=== PATIENT | female | born 1945 | race Caucasian/White ===

== ENCOUNTER 2023-11-15 15:48 | Inpatient (IN) ==
[2023-11-15] MEDS ORDERED: NS 0.9% 1000 ml BAG 1,000 ML IV ONE (16:44)
[2023-11-15] MEDS ORDERED: Magnesium Sulfate 2 gm BAG 2 GM/50 ML BAG IVPB ONE (16:44)
[2023-11-15] MEDS ORDERED: Metoprolol Tartrate 5 mg VIAL 5 ml VIAL (1 mg/ml) IV ONE (16:46)
[2023-11-15 18:04] LABS: ABS Lymphocytes 0.1 10^3/uL (1.0-4.8); ABS Monocytes 0.1 10^3/uL (0.0-0.9); ABS Nucleated RBC 0.01 10^3/ul; Eosinophil % 1.1 %; Hemoglobin 10.2 g/dL (11.5-14.3); Lymphocyte % 10.3 %; Mean Corpuscular Hemoglobin 31.3 pg (27-33); Mean Corpuscular Hgb Conc 33.9 g/dL (31-36); Mean Corpuscular Volume 92.3 fL (80-97); Mean Platelet Volume 8.1 fL (7.5-11.2); Nucleated Red Blood Cells % 0.7 %/100WBC (0.0-0.8); Platelet Count 64 10^3/uL (150-450); Red Blood Count 3.25 10^6/uL (3.63-4.92); Red Cell Distribution Width 14.1 % (12-17); White Blood Count 0.8 10^3/uL (3.8-11.8)
[2023-11-15 18:08] LABS: ABS Neutrophils 0.6 10^3/uL (1.5-7.6)
[2023-11-15 18:20] LABS: Albumin 3.3 g/dL (3.2-5.2); Albumin/Globulin Ratio 1.5 (1-3); Creatinine, Serum 0.45 mg/dL (0.51-0.95); Globulin 2.2 g/dL (2-4); Magnesium 2.3 mg/dL (1.9-2.7); Potassium 3.8 mmol/L (3.5-5.0); Total Bilirubin 0.4 mg/dL (0.2-1.0); Total Protein 5.5 g/dL (6.4-8.9); eGFR CKD-EPI 97.8 (>60)
[2023-11-15] MEDS: KCL 20 MEQ/100 ML IVPREMIX 20 MEQ/100 ML BAG IV SCH (18:28)
[2023-11-15] MEDS ORDERED: Remdesivir 100 mg Vial 200 MG in NS 0.9% 250 ml 210 ML IV ONE (18:50)
[2023-11-15] MEDS ORDERED: D5LR 1000 ml BAG 1,000 ML IV SCH (19:00)
[2023-11-15] MEDS ORDERED: Remdesivir 100 mg Vial 100 MG in NS 0.9% 250 ml 230 ML IV SCH (19:00)
[2023-11-15] MEDS: Sucralfate 1 gm SUSP 1 GM/10 ML UDC PO SCH (21:19)
[2023-11-15] MEDS ORDERED: Vancomycin 1,000 MG in NS 0.9% 250 ml 250 ML IVPB ONE (21:57)
[2023-11-15] MEDS ORDERED: Acetaminophen IV 1 GM/100ML 1,000 MG/100 ML BAG IV ONE (21:59)
[2023-11-15] MEDS ORDERED: Vancomycin per Pharmacy 1 EA NOTE FOLLOW UP SCH (22:00)
[2023-11-15] MEDS: Cefepime 2 GM in Dextrose 2 GM/50 ML BAG IV SCH (22:57)
[2023-11-15] MEDS ORDERED: Metoprolol Tartrate 5 mg VIAL 5 ml VIAL (1 mg/ml) IV PRN (23:58)
[2023-11-16] MEDS: KCL 20 MEQ/100 ML IVPREMIX 20 MEQ/100 ML BAG IV SCH ×3 (00:27→15:50)
[2023-11-16 01:50] LABS: Urine Appearance Clear; Urine Bilirubin Negative (Negative); Urine Blood Negative (Negative); Urine Color Yellow; Urine Glucose Negative (Negative); Urine Ketones 1+ (Negative); Urine Nitrite Negative (Negative); Urine Protein Negative (Negative); Urine Specific Gravity 1.023 (1.002-1.030); Urine Urobilinogen Negative (Negative)
[2023-11-16] MEDS: Vancomycin 750 MG in NS 0.9% 250 ML IVPB SCH ×3 (06:11→22:18)
[2023-11-16] MEDS ORDERED: Acetaminophen IV 1 GM/100ML 1,000 MG/100 ML BAG IV PRN (06:19)
[2023-11-16] MEDS: Sucralfate 1 gm SUSP 1 GM/10 ML UDC PO SCH ×4 (08:08→21:37)
[2023-11-16 08:34] LABS: Calcium 7.7 mg/dL (8.6-10.3); Creatinine, Serum 0.43 mg/dL (0.51-0.95); Magnesium 1.7 mg/dL (1.9-2.7); Potassium 3.3 mmol/L (3.5-5.0); eGFR CKD-EPI 98.9 (>60)
[2023-11-16 08:45] LABS: ABS Lymphocytes 0.1 10^3/uL (1.0-4.8); ABS Monocytes 0.1 10^3/uL (0.0-0.9); Eosinophil % 2.1 %; Hematocrit 31.6 % (35-45); Hemoglobin 10.6 g/dL (11.5-14.3); Lymphocyte % 11.3 %; Mean Corpuscular Hemoglobin 31.2 pg (27-33); Mean Corpuscular Hgb Conc 33.6 g/dL (31-36); Mean Corpuscular Volume 92.9 fL (80-97); Mean Platelet Volume 8.4 fL (7.5-11.2); Nucleated Red Blood Cells % 0.6 %/100WBC (0.0-0.8); Platelet Count 59 10^3/uL (150-450); Red Cell Distribution Width 13.8 % (12-17); White Blood Count 0.7 10^3/uL (3.8-11.8)
[2023-11-16 08:46] LABS: TSH Ultra Thyroid Stim Horm 1.02 mcIU/mL (0.34-5.60)
[2023-11-16] MEDS: Cefepime 2 GM in Dextrose 2 GM/50 ML BAG IV SCH ×2 (09:49→21:37)
[2023-11-16] MEDS ORDERED: Magnesium Sulfate 2 gm BAG 2 GM/50 ML BAG IVPB ONE (12:43)
[2023-11-16] MEDS: Lactated Ringers 1000 ml BAG 1,000 ML IV SCH ×2 (13:57→21:37)
[2023-11-16] MEDS ORDERED: Lactated Ringers 1000 ml BAG 1,000 ML IV SCH (14:00)
[2023-11-16] MEDS ORDERED: Magnesium Sulfate IV 1GM/100ML 1 GM/100 ML BAG IV ONE (14:43)
[2023-11-16] MEDS: fentaNYL PATCH 12 MCG/HR 1 PATCH TRANSDERM SCH (15:06)
[2023-11-16 15:35] LABS: ABS Neutrophils 0.6 10^3/uL (1.5-7.6)
[2023-11-16 16:20] LABS: Digoxin 0.5 ng/ml (0.8-2.0)
[2023-11-16] MEDS: Metoprolol Tartrate 5 mg VIAL 5 ml VIAL (1 mg/ml) IV PRN (18:30)
[2023-11-16] MEDS: fentaNYL Patch Check Q Shift NOTE FOLLOW UP SCH (19:17)
[2023-11-17] MEDS: Lactated Ringers 1000 ml BAG 1,000 ML IV SCH ×2 (04:14→17:46)
[2023-11-17] MEDS: Metoprolol Tartrate 5 mg VIAL 5 ml VIAL (1 mg/ml) IV PRN (04:28)
[2023-11-17] MEDS ORDERED: Vancomycin Trough Check NOTE FOLLOW UP ONE (06:00)
[2023-11-17] MEDS: Vancomycin 750 MG in NS 0.9% 250 ML IVPB SCH ×2 (06:49→14:47)
[2023-11-17] MEDS: fentaNYL Patch Check Q Shift NOTE FOLLOW UP SCH ×2 (06:50→19:00)
[2023-11-17 07:53] LABS: Hematocrit 29.3 % (35-45); Hemoglobin 10.3 g/dL (11.5-14.3); Mean Corpuscular Hemoglobin 31.7 pg (27-33); Mean Corpuscular Hgb Conc 35.1 g/dL (31-36); Mean Corpuscular Volume 90.5 fL (80-97); Platelet Count 57 10^3/uL (150-450); Red Blood Count 3.23 10^6/uL (3.63-4.92); Red Cell Distribution Width 13.5 % (12-17); White Blood Count 1.7 10^3/uL (3.8-11.8)
[2023-11-17 08:03] LABS: Calcium 7.6 mg/dL (8.6-10.3); Creatinine, Serum 0.42 mg/dL (0.51-0.95); Magnesium 1.7 mg/dL (1.9-2.7); Potassium 3.5 mmol/L (3.5-5.0); eGFR CKD-EPI 99.4 (>60)
[2023-11-17 08:10] LABS: Vancomycin Trough 12.5 mcg/mL
[2023-11-17] MEDS ORDERED: Magnesium Sulfate 2 gm BAG 2 GM/50 ML BAG IVPB ONE (08:10)
[2023-11-17] MEDS: Sucralfate 1 gm SUSP 1 GM/10 ML UDC PO SCH ×4 (08:34→20:16)
[2023-11-17 09:02] LABS: ABS Lymphocytes 0.1 10^3/uL (1.0-4.8); ABS Monocytes 0.1 10^3/uL (0.0-0.9); ABS Neutrophils 1.5 10^3/uL (1.5-7.6); ABS Nucleated RBC 0.01 10^3/ul; Eosinophil % 1.1 %; Lymphocyte % 6.5 %; Nucleated Red Blood Cells % 0.5 %/100WBC (0.0-0.8)
[2023-11-17] MEDS: Cefepime 2 GM in Dextrose 2 GM/50 ML BAG IV SCH ×2 (10:05→23:34)
[2023-11-17] MEDS ORDERED: Magnesium Sulfate IV 1GM/100ML 1 GM/100 ML BAG IV ONE (10:10)
[2023-11-18] MEDS: Vancomycin 750 MG in NS 0.9% 250 ML IVPB SCH ×4 (01:28→23:59)
[2023-11-18] MEDS: Lactated Ringers 1000 ml BAG 1,000 ML IV SCH (01:28)
[2023-11-18] MEDS: Metoprolol Tartrate 5 mg VIAL 5 ml VIAL (1 mg/ml) IV PRN (06:51)
[2023-11-18] MEDS: fentaNYL Patch Check Q Shift NOTE FOLLOW UP SCH ×2 (07:05→19:06)
[2023-11-18 07:57] LABS: Hematocrit 29.8 % (35-45); Hemoglobin 10.3 g/dL (11.5-14.3); Mean Corpuscular Hemoglobin 31.5 pg (27-33); Mean Corpuscular Hgb Conc 34.7 g/dL (31-36); Mean Corpuscular Volume 90.8 fL (80-97); Mean Platelet Volume 8.4 fL (7.5-11.2); Platelet Count 59 10^3/uL (150-450); Red Blood Count 3.28 10^6/uL (3.63-4.92); Red Cell Distribution Width 13.8 % (12-17); White Blood Count 2.8 10^3/uL (3.8-11.8)
[2023-11-18 08:12] LABS: Calcium 7.6 mg/dL (8.6-10.3); Creatinine, Serum 0.45 mg/dL (0.51-0.95); Magnesium 1.6 mg/dL (1.9-2.7); Potassium 3.1 mmol/L (3.5-5.0); eGFR CKD-EPI 97.8 (>60)
[2023-11-18] MEDS ORDERED: Magnesium Sulfate 2 gm BAG 2 GM/50 ML BAG IVPB ONE (08:35)
[2023-11-18] MEDS ORDERED: Potassium Chlor 20 meq TAB.ER PO ONE ×2 (08:35→11:13)
[2023-11-18 10:35] LABS: ABS Lymphocytes 0.1 10^3/uL (1.0-4.8); ABS Monocytes 0.3 10^3/uL (0.0-0.9); ABS Neutrophils 2.3 10^3/uL (1.5-7.6); Dohle Bodies Present; Eosinophil % 1.2 %; Lymphocyte % 4.9 %; Toxic Granulation 1+
[2023-11-18] MEDS: Cefepime 2 GM in Dextrose 2 GM/50 ML BAG IV SCH (11:19)
[2023-11-18] MEDS: Sucralfate 1 gm SUSP 1 GM/10 ML UDC PO SCH ×4 (11:24→21:02)
[2023-11-18] MEDS ORDERED: Lactated Ringers 1000 ml BAG 1,000 ML IV SCH (12:00)
[2023-11-19] MEDS: fentaNYL Patch Check Q Shift NOTE FOLLOW UP SCH ×2 (07:15→21:00)
[2023-11-19 07:20] LABS: Calcium 7.7 mg/dL (8.6-10.3); Creatinine, Serum 0.46 mg/dL (0.51-0.95); Magnesium 1.4 mg/dL (1.9-2.7); Potassium 3.4 mmol/L (3.5-5.0); eGFR CKD-EPI 97.3 (>60)
[2023-11-19 07:22] LABS: Hematocrit 29.2 % (35-45); Hemoglobin 10.2 g/dL (11.5-14.3); Mean Corpuscular Hemoglobin 31.8 pg (27-33); Mean Platelet Volume 8.2 fL (7.5-11.2); Platelet Count 64 10^3/uL (150-450); Red Blood Count 3.21 10^6/uL (3.63-4.92); Red Cell Distribution Width 13.5 % (12-17)
[2023-11-19] MEDS: Vancomycin 750 MG in NS 0.9% 250 ML IVPB SCH ×2 (08:09→14:09)
[2023-11-19] MEDS ORDERED: Potassium Chloride LIQUID 20 MEQ/15 ML LIQUID PO ONE (08:36)
[2023-11-19] MEDS: Sucralfate 1 gm SUSP 1 GM/10 ML UDC PO SCH ×4 (08:37→23:09)
[2023-11-19] MEDS ORDERED: Magnesium Sulfate 2 gm BAG 2 GM/50 ML BAG IVPB ONE (08:37)
[2023-11-19 08:58] LABS: ABS Lymphocytes 0.4 10^3/uL (1.0-4.8); ABS Monocytes 0.7 10^3/uL (0.0-0.9); ABS Neutrophils 2.8 10^3/uL (1.5-7.6); ABS Nucleated RBC 0.01 10^3/ul; Lymphocyte % 10.4 %; Nucleated Red Blood Cells % 0.2 %/100WBC (0.0-0.8); RBC Morphology Normal (Normal)
[2023-11-19] MEDS: fentaNYL PATCH 12 MCG/HR 1 PATCH TRANSDERM SCH (14:04)
[2023-11-19] MEDS ORDERED: fentaNYL 100 mcg/2 ml 50 MCG/ML VIAL ONE (16:40)
[2023-11-19] MEDS ORDERED: Phenylephrine 40 mcg/mL 10mL (400mcg) SYRINGE ONE ×4 (17:37→18:13)
[2023-11-19] MEDS ORDERED: Glycopyrrolate IV 0.2 MG/ML 1 ML VIAL ONE ×2 (17:37→18:58)
[2023-11-19] MEDS ORDERED: Artificial Tear OPHTH.OINT 3.5 GM ONE (17:40)
[2023-11-19] MEDS ORDERED: Bupivacaine 0.25% SDV PF 10 ML VIAL INJ ONE (17:46)
[2023-11-19] MEDS ORDERED: Ondansetron 4 mg VIAL 2 MG/ML 2 ml VIAL ONE (17:50)
[2023-11-19] MEDS ORDERED: Dexamethasone IV 4 MG/ML VIAL 1 ml VIAL ONE (17:50)
[2023-11-19] MEDS ORDERED: Propofol 10 MG/ML 20 ML BTL ONE (18:10)
[2023-11-19] MEDS ORDERED: Lidocaine 2% PF 5 ML VIAL ONE (18:10)
[2023-11-19] MEDS ORDERED: fentaNYL 100 mcg/2 ml 50 MCG/ML VIAL IV PRN (18:23)
[2023-11-19] MEDS ORDERED: Naloxone 0.4 mg VIAL 0.4 mg/ml 1 ml VIAL IV PRN (18:23)
[2023-11-19] MEDS ORDERED: fentaNYL PATCH 12 MCG/HR 1 PATCH TRANSDERM SCH (23:00)
[2023-11-20] MEDS ORDERED: Vancomycin Trough Check NOTE FOLLOW UP ONE (06:00)
[2023-11-20 07:23] LABS: ABS Lymphocytes 0.9 10^3/uL (1.0-4.8); ABS Neutrophils 3.7 10^3/uL (1.5-7.6); ABS Nucleated RBC 0.02 10^3/ul; Eosinophil % 0.1 %; Hematocrit 29.7 % (35-45); Hemoglobin 10.2 g/dL (11.5-14.3); Lymphocyte % 15.6 %; Mean Corpuscular Hemoglobin 31.6 pg (27-33); Mean Corpuscular Hgb Conc 34.3 g/dL (31-36); Mean Corpuscular Volume 92.2 fL (80-97); Mean Platelet Volume 8.2 fL (7.5-11.2); Nucleated Red Blood Cells % 0.3 %/100WBC (0.0-0.8); Platelet Count 87 10^3/uL (150-450); Red Blood Count 3.22 10^6/uL (3.63-4.92); Red Cell Distribution Width 13.9 % (12-17); White Blood Count 5.7 10^3/uL (3.8-11.8)
[2023-11-20 07:31] LABS: Calcium 7.7 mg/dL (8.6-10.3); Creatinine, Serum 0.51 mg/dL (0.51-0.95); Magnesium 1.6 mg/dL (1.9-2.7); Potassium 3.7 mmol/L (3.5-5.0); eGFR CKD-EPI 94.9 (>60)
[2023-11-20] MEDS ORDERED: Magnesium Sulfate 2 gm BAG 2 GM/50 ML BAG IVPB ONE (07:42)
[2023-11-20] MEDS: fentaNYL Patch Check Q Shift NOTE FOLLOW UP SCH ×2 (07:43→19:28)
[2023-11-20] MEDS: Sucralfate 1 gm SUSP 1 GM/10 ML UDC PO SCH ×4 (11:20→21:45)
[2023-11-21 06:18] LABS: Hematocrit 29.3 % (35-45); Hemoglobin 10.2 g/dL (11.5-14.3); Mean Corpuscular Hemoglobin 31.9 pg (27-33); Mean Corpuscular Hgb Conc 34.9 g/dL (31-36); Mean Corpuscular Volume 91.4 fL (80-97); Mean Platelet Volume 7.9 fL (7.5-11.2); Platelet Count 100 10^3/uL (150-450); Red Cell Distribution Width 13.9 % (12-17); White Blood Count 7.1 10^3/uL (3.8-11.8)
[2023-11-21 06:32] LABS: Calcium 7.6 mg/dL (8.6-10.3); Creatinine, Serum 0.52 mg/dL (0.51-0.95); Potassium 3.4 mmol/L (3.5-5.0); eGFR CKD-EPI 94.5 (>60)
[2023-11-21] MEDS: fentaNYL Patch Check Q Shift NOTE FOLLOW UP SCH ×2 (07:05→15:04)
[2023-11-21 07:09] LABS: ABS Basophils 0.1 10^3/uL (0.0-0.1); ABS Lymphocytes 1.1 10^3/uL (1.0-4.8); ABS Monocytes 0.8 10^3/uL (0.0-0.9); ABS Neutrophils 5.1 10^3/uL (1.5-7.6); ABS Nucleated RBC 0.03 10^3/ul; Eosinophil % 0.2 %; Lymphocyte % 15.7 %; Nucleated Red Blood Cells % 0.4 %/100WBC (0.0-0.8)
[2023-11-21 07:59] LABS: Magnesium 1.7 mg/dL (1.9-2.7)
[2023-11-21] MEDS ORDERED: Potassium Chloride LIQUID 20 MEQ/15 ML LIQUID PO ONE (08:27)
[2023-11-21] MEDS ORDERED: Magnesium Sulfate 2 gm BAG 2 GM/50 ML BAG IVPB ONE (08:28)
[2023-11-21] MEDS ORDERED: Polyethylene Glycol 3350 17 GM PACKET PO PRN (08:30)
[2023-11-21] MEDS ORDERED: Potassium Chloride LIQUID 20 MEQ/15 ML LIQUID PO SCH (09:00)
[2023-11-21] MEDS: Sucralfate 1 gm SUSP 1 GM/10 ML UDC PO SCH ×2 (09:59→13:21)
[2023-11-21 10:08] VITALS: BP 123/69
== END 2023-11-21 15:09 | disposition home or self-care (01) | DRG 308 ==
LOC: ED 15:48 → EDHOLD 15:48 → SUATTDRO 16:57 → MEDTELE 20:02 → SUATTDRO 11-17 12:16
PROVIDERS: ADMIT Internal Medicine; ATTEND Internal Medicine